=== PATIENT | male | born 1985 | race Caucasian/White ===

== ENCOUNTER 2019-10-20 20:05 | Emergency (ER) | payer MEDICAID ==
[2019-10-20] MEDS ORDERED: LORazepam 1 MG Tab ONE (20:20)
[2019-10-20] MEDS: Sodium Chloride 0.9% 1,000 ML IV ONE (20:30)
[2019-10-20 21:01] VITALS: BP 162/108; PULSE 108
--- NOTE | 2019-10-20 22:26 | EDM.PDOC ---
ED HPI GENERAL MEDICAL PROBLEM - General Chief Complaint: General Stated Complaint: seizure Time Seen by Provider: 10/20/19 20:10 Source of Information: Reports: Patient History Limitations: Reports: No Limitations - History of Present Illness INITIAL COMMENTS - FREE TEXT/NARRATIVE: This is a 34yo M brought in by EMS for a new onset seizure. He had recently stopped drinking alcohol completely for about 2 days. He did drink a lot prior in the range of a 6 pack and 500mL of liquor. He had not been eating today and has not slept much the past few days. He denies prior history of seizure like activity. Onset: Sudden Duration: Minutes: Location: Reports: Generalized Associated Symptoms: Reports: No Other Symptoms - Related Data Allergies Allergy/AdvReac Type Severity Reaction Status Date / Time No Known Allergies Allergy Verified 03/08/16 18:37 Home Meds: Home Meds chlordiazePOXIDE HCl [Chlordiazepoxide HCl] 5 mg PO DAILY 03/08/16 [History] Past Medical History HEENT History: Reports: Allergic Rhinitis Psychiatric History: Reports: Addiction, Anxiety, Depression, Panic Attack, Suicidal Ideation Social & Family History - Tobacco Use Smoking Status *Q: Current Every Day Smoker Years of Tobacco use: 20 Packs/Tins Daily: 1 Used Tobacco, but Quit: Yes Month/Year Tobacco Last Used: 09/2019 Second Hand Smoke Exposure: Yes - Caffeine Use Caffeine Use: Reports: Soda Caffeine Use Comment: 6 cans per day - Alcohol Use Days Per Week of Alcohol Use: 7 Number of Drinks Per Day: 15 Total Drinks Per Week: 105 Date of Last Drink: 10/18/19 - Recreational Drug Use Recreational Drug Use: No ED ROS GENERAL - Review of Systems Review Of Systems: Comprehensive ROS is negative, except as noted in HPI. ED EXAM, GENERAL - Physical Exam Exam: See Below Exam Limited By: No Limitations General Appearance: Alert, WD/WN, No Apparent Distress Eye Exam: Bilateral Eye: EOMI, PERRL Ears: Normal External Exam Nose: Normal Inspection Throat/Mouth: Normal Inspection Head: Atraumatic, Normocephalic Neck: Normal Inspection Respiratory/Chest: No Respiratory Distress, Lungs Clear, Normal Breath Sounds Cardiovascular: Normal Peripheral Pulses, Regular Rate, Rhythm Peripheral Pulses: 2+: Dorsalis Pedis (L), Dorsalis Pedis (R) GI/Abdominal: Normal Bowel Sounds Back Exam: Normal Inspection Extremities: Normal Inspection Neurological: Alert, Oriented, CN II-XII Intact, Normal Cognition, Normal Gait, Normal Reflexes, No Motor/Sensory Deficits Psychiatric: Normal Affect, Normal Mood Skin Exam: Warm, Dry, Intact Course - Vital Signs Last Recorded V/S: Last Vital Signs Temp 36.9 C 10/20/19 21:00 Pulse 108 H 10/20/19 21:00 Resp 18 10/20/19 21:00 BP 162/108 H 10/20/19 21:00 Pulse Ox 99 10/20/19 21:00 - Orders/Labs/Meds Orders: Active Orders 24 hr Category Date Time Status Head wo Cont [CT] Stat Exams 10/20/19 20:34 Taken UA RFX DIEGO AND CULT IF INDIC [URIN] Stat Lab 10/20/19 20:34 Ordered Labs: Laboratory Tests 10/20/19 10/20/19 Range/Units 20:45 20:45 WBC 3.9 L D (4.0-11.0) K/uL RBC 4.96 (4.50-6.50) M/uL Hgb 15.1 (13.0-18.0) g/dL Hct 44.7 (40.0-54.0) % MCV 90 (76-96) fL MCH 30.4 (27.0-32.0) pg MCHC 33.8 (31.0-35.0) g/dL RDW 13.4 (11.0-16.0) % Plt Count 176 (150-400) K/uL MPV 9.9 (6.0-10.0) fL Neut % (Auto) 61.3 (45.0-70.0) % Lymph % (Auto) 27.1 (20.0-40.0) % Gila % (Auto) 8.0 (3.0-10.0) % Eos % (Auto) 2.8 (1.0-5.0) % Baso % (Auto) 0.8 H (0.0-0.5) % Neut # (Auto) 2.37 (2.00-7.50) K/uL Lymph # (Auto) 1.05 L (1.50-4.00) K/uL Gila # (Auto) 0.31 (0.20-0.80) K/uL Eos # (Auto) 0.11 (0.04-0.40) K/uL Baso # (Auto) 0.03 (0.02-0.10) K/uL Sodium 132 L (136-145) mmol/L Potassium 3.4 L D (3.5-5.1) mmol/L Chloride 96 L (98-107) mmol/L Carbon Dioxide 24.4 (21.0-32.0) mmol/L Anion Gap 15.0 (5.0-15.0) mmol/L BUN 14 (8-26) mg/dL Creatinine 1.29 D (0.70-1.30) mg/dL Est Cr Clr Drug Dosing TNP Estimated GFR (MDRD) > 60 (>60) MLS/MIN BUN/Creatinine Ratio 10.9 (6-25) Glucose 171 H (74-100) mg/dL Calcium 9.0 (8.5-10.1) mg/dL Total Bilirubin 0.7 D (0.0-1.0) mg/dL AST 148 H (15-37) U/L ALT 182 H (12-78) U/L Alkaline Phosphatase 79 (46-116) U/L Troponin I < 0.017 (0.000-0.060) ng/mL B-Natriuretic Peptide 41 (0-125) pg/mL Total Protein 7.8 (6.4-8.2) g/dL Albumin 4.4 (3.4-5.0) g/dL Globulin 3.4 (2.2-4.2) g/dL Albumin/Globulin Ratio 1.3 (0.8-2.0) TSH, Ultra Sensitive 4.369 H D (0.358-3.740) uIU/mL Ethyl Alcohol < 3.0 (<3.0) mg/dL Departure - Departure Time of Disposition: 22:20 Disposition: Home, Self-Care 01 Condition: Good Clinical Impression: Alcohol withdrawal seizure Qualifiers: Complication of substance-induced condition: uncomplicated Qualified Code(s): F10.230 - Alcohol dependence with withdrawal, uncomplicated - Discharge Information Instructions: Hypokalemia, Sodium Test Forms: ED Department Discharge Sepsis Event Note - Evaluation Sepsis Screening Result: No Definite Risk - Focused Exam Vital Signs: Vital Signs Temp Pulse Resp BP Pulse Ox 10/20/19 21:00 36.9 C 108 H 18 162/108 H 99 Date Exam was Performed: 10/20/19 Time Exam was Performed: 22:21 - Problem List & Annotations (1) Alcohol withdrawal seizure SNOMED Code(s): 851983656 Code(s): F10.239 - ALCOHOL DEPENDENCE WITH WITHDRAWAL, UNSPECIFIED; R56.9 - UNSPECIFIED CONVULSIONS Status: Suspected Qualifiers: Complication of substance-induced condition: uncomplicated Qualified Code(s ): F10.230 - Alcohol dependence with withdrawal, uncomplicated - Problem List Review Problem List Initiated/Reviewed/Updated: Yes - My Orders Last 24 Hours: My Active Orders 10/20/19 20:34 Head wo Cont [CT] Stat UA RFX DIEGO AND CULT IF INDIC [URIN] Stat - Assessment/Plan Last 24 Hours: My Active Orders 10/20/19 20:34 Head wo Cont [CT] Stat UA RFX DIEGO AND CULT IF INDIC [URIN] Stat Plan: Counseled on alcohol withdrawal and management. Patient to f/u in clinic as directed. Prescribed lorazepam as directed and scheduled for the next few days. F/u if any concerns or return of symptoms. Discussed close monitoring with conservative and supportive care. Discussed hydration, hypokalemia and hyponatremia.
--- NOTE | 2019-10-21 09:13 | CT ---
Date of Service: 10/20/19 Clinical Data: new onset seizure UNENHANCED BRAIN CT: Multislice axial acquisition was performed. No priors. No masses or mass effect. No intracranial hemorrhage. No evidence of acute or subacute infarct. No osseous abnormalities. IMPRESSION: No acute intracranial abnormalities. [id number] MTD
== END 2019-10-20 22:15 | disposition home or self-care (01) ==
LOC: LB.ED 20:05
DX: F10.230 Alcohol dependence with withdrawal, uncomplicated (principal); Y90.0 Blood alcohol level of less than 20 mg/100 ml; F17.210 Nicotine dependence, cigarettes, uncomplicated; F41.9 Anxiety disorder, unspecified; Z79.899 Other long term (current) drug therapy
CPT/HCPCS: 36415; 70450; 80053; 80320; 83880; 84443; 84484; 85025; 96360; 99285; A0425; A0429; A9270; J7030; G0480

== ENCOUNTER 2020-08-17 11:47 | Emergency (ER) | payer MEDICAID ==
[2020-08-17 12:05] VITALS: BP 162/107; PULSE 106
--- NOTE | 2020-08-17 12:17 | EDM.PDOC ---
ED HPI GENERAL MEDICAL PROBLEM - General Chief Complaint: Drug or Alcohol Abuse Stated Complaint: EVALUATION Time Seen by Provider: 08/17/20 11:55 Source of Information: Reports: Patient History Limitations: Reports: No Limitations - History of Present Illness INITIAL COMMENTS - FREE TEXT/NARRATIVE: patient was sober for 2 years, started drinking ETOH 2 weeks ago and would like to return to treatment. He is staying at [facility] and his father brings him to ED. He and his brother have arranged for inpatient treatment at [facility] in the [facility] and the patient presents for a COVID test prior to treatment admission. He last drank vodka this AM. He states he has been eating normally. PMH of seizures with withdrawls. Slight tremor noted, denies CALDERON, nausea, hallucinations, SI, HI. Associated Symptoms: Reports: No Other Symptoms - Related Data Allergies Allergy/AdvReac Type Severity Reaction Status Date / Time No Known Allergies Allergy Verified 03/08/16 18:37 Home Meds: Home Meds chlordiazePOXIDE HCl [Chlordiazepoxide HCl] 5 mg PO DAILY 03/08/16 [History] Past Medical History HEENT History: Reports: Allergic Rhinitis Psychiatric History: Reports: Addiction, Anxiety, Depression, Panic Attack, Suicidal Ideation Social & Family History - Caffeine Use Caffeine Use: Reports: Soda Caffeine Use Comment: 6 cans per day ED ROS GENERAL - Review of Systems Review Of Systems: See Below Constitutional: Reports: No Symptoms HEENT: Reports: No Symptoms Respiratory: Reports: No Symptoms, Cough (allergy related) Cardiovascular: Reports: No Symptoms Endocrine: Reports: No Symptoms GI/Abdominal: Reports: No Symptoms : Reports: No Symptoms Musculoskeletal: Reports: No Symptoms Skin: Reports: No Symptoms Neurological: Reports: No Symptoms Psychiatric: Reports: No Symptoms Immunologic: Reports: No Symptoms ED EXAM, GENERAL - Physical Exam Exam: See Below Exam Limited By: No Limitations General Appearance: Alert, No Apparent Distress Ears: Normal External Exam, Normal Canal, Normal TMs Nose: Normal Inspection Throat/Mouth: Normal Inspection, Normal Lips, Normal Teeth, Normal Oropharynx, Normal Voice, No Airway Compromise Head: Atraumatic Neck: Normal Inspection, Non-Tender, Full Range of Motion Respiratory/Chest: No Respiratory Distress, Lungs Clear, Normal Breath Sounds, No Accessory Muscle Use Cardiovascular: No Edema, No JVD, No Murmur, Tachycardia Peripheral Pulses: 3+: Radial (L), Radial (R), Dorsalis Pedis (L), Dorsalis Pedis (R) GI/Abdominal: Normal Bowel Sounds, Soft, Non-Tender Back Exam: Normal Inspection, Full Range of Motion Extremities: Normal Range of Motion, Non-Tender, No Pedal Edema, Normal Capillary Refill Neurological: Alert, Oriented, Normal Cognition, Normal Gait, Normal Reflexes, No Motor/Sensory Deficits Psychiatric: Normal Affect, Anxious Skin Exam: Warm, Dry, Intact Lymphatic: No Adenopathy Course - Vital Signs Last Recorded V/S: Last Vital Signs Temp 206.6 F H 08/17/20 12:00 Pulse 106 H 08/17/20 12:00 Resp 16 08/17/20 12:00 BP 162/107 H 08/17/20 12:00 Pulse Ox 99 08/17/20 12:00 - Orders/Labs/Meds Orders: Active Orders 24 hr Category Date Time Status CORONAVIRUS COVID-19 RAPID [MOLEC] Stat Lab 08/17/20 13:11 Ordered ETHANOL BLOOD MEDICAL [CHEM] Stat Lab 08/17/20 13:11 Ordered Meds: Medications Discontinued Medications Generic Name Dose Route Start Last Admin Trade Name Freq PRN Reason Stop Dose Admin Lorazepam Confirm 08/17/20 12:45 08/17/20 12:45 Ativan Administered 08/17/20 12:46 1 mg Dose Administration 1 mg .ROUTE .STK-MED ONE Departure - Departure Time of Disposition: 13:30 Disposition: DC/Tfer to Inpt Rehab Fac 62 Clinical Impression: Alcohol abuse, Chronic alcohol abuse Alcohol dependence syndrome Qualifiers: Substance use status: uncomplicated Qualified Code(s): F10.20 - Alcohol dependence, uncomplicated - Discharge Information *PRESCRIPTION DRUG MONITORING PROGRAM REVIEWED*: Not Applicable *COPY OF PRESCRIPTION DRUG MONITORING REPORT IN PATIENT KAMILAH: Not Applicable Instructions: Chemical Dependency Referrals: PCP,None [Primary Care Provider] - Forms: ED Department Discharge Additional Instructions: Patient discharged from ED, going to [facility] with Father for detox and inpatient treatment Sepsis Event Note (ED) - Evaluation Sepsis Screening Result: No Definite Risk - Focused Exam Vital Signs: Vital Signs Temp Pulse Resp BP Pulse Ox 08/17/20 12:00 206.6 F H 106 H 16 162/107 H 99 - My Orders Last 24 Hours: My Active Orders 08/17/20 13:11 CORONAVIRUS COVID-19 RAPID [MOLEC] Stat ETHANOL BLOOD MEDICAL [CHEM] Stat - Assessment/Plan Last 24 Hours: My Active Orders 08/17/20 13:11 CORONAVIRUS COVID-19 RAPID [MOLEC] Stat ETHANOL BLOOD MEDICAL [CHEM] Stat Plan: Trace JORGE LUIS called to assist with placement. [facility] social services director enroute to hospital for rule 25. Called [facility] in [place], spoke with Jaki the [facility] director, they have an inpatient bed, but the patient would need to detox prior to inpatient treatment. BAL ordered. 1325 Patient and father left hospital to collect patients belongings. He is cleared and accepted at [facility] in [place] for detox and inpatient treatment. His father will drive the patient. COVID negative. BAL 267, result called to Fina MORALES at [facility]
[2020-08-17] MEDS: LORazepam 1 MG Tab ONE (12:45)
== END 2020-08-17 13:25 ==
LOC: LB.ED 11:47
DX: F10.20 Alcohol dependence, uncomplicated (principal); Y90.8 Blood alcohol level of 240 mg/100 ml or more; Z20.828 Contact with and (suspected) exposure to other viral communicable diseases
CPT/HCPCS: 36415; 80307; 87635; 99284; A9270; U0002

== ENCOUNTER 2021-05-29 14:22 | Emergency (ER) | payer MEDICAID ==
[2021-05-29] MEDS ORDERED: Sodium Chloride 0.9% 1,000 ML IV ONE (14:48)
[2021-05-29] MEDS ORDERED: Thiamine 100 MG in Sodium Chloride 0.9% 100 ML IV SCH (15:00)
[2021-05-29] MEDS ORDERED: LORazepam 2 MG/ML SDV ONE (15:22)
[2021-05-29] MEDS ORDERED: LORazepam 2 MG/ML SDV IM ONE (15:28)
[2021-05-29] MEDS ORDERED: Ondansetron 4 MG/2 ML SDV ONE (15:42)
[2021-05-29] MEDS: Ondansetron 4 MG/2 ML SDV IVPUSH PRN (15:46)
[2021-05-29] MEDS ORDERED: MVI, Adult with Vitamin K 10 ML, Thiamine 100 MG, Folic Acid 1 MG, Magnesium Sulfate 3 ... IV SCH ×5 (16:00)
[2021-05-29] MEDS ORDERED: D5W ONE (16:14)
[2021-05-29] MEDS ORDERED: Thiamine 200 MG/2 ML MDV ONE (16:14)
[2021-05-29] MEDS ORDERED: MAGNESIUM SULFATE ONE (16:14)
[2021-05-29] MEDS: LORazepam 2 MG/ML SDV IVPUSH PRN ×3 (18:24→23:00)
[2021-05-29] MEDS ORDERED: Prochlorperazine 10 MG/2 ML SDV IVPUSH PRN (18:25)
[2021-05-30] MEDS: LORazepam 2 MG/ML SDV IVPUSH PRN ×2 (05:02→07:15)
[2021-05-30] MEDS: Ondansetron 4 MG/2 ML SDV IVPUSH PRN (07:34)
--- NOTE | 2021-05-30 14:33 | ER ---
ADMISSION DIAGNOSIS: Alcoholism with withdrawal symptoms. HISTORY: This 35-year-old man has a fairly long-standing history of alcohol abuse and alcoholism with symptoms and sequelae of alcohol withdrawal. Apparently, lately, he went on a drinking spree, where he drank exceedingly excessive amount of alcohol over the prior 24 hours. He has had a history of complications of his alcoholism including upper GI bleeding, and with alcohol withdrawal in the past, he has had suicidal ideation and has experienced withdrawal seizures. He was brought to the emergency department requesting help with his alcohol withdrawal symptoms by the law enforcement officials. He was dropped off at the emergency room, and after a short period of waiting, left the emergency room before being evaluated. He evidently wandered around a bit and returned for evaluation. He states that he had been drinking up alcohol as much as 1 L per day for the prior 2 weeks. He was complaining of feeling sweaty and shaky. He still did have alcohol odor on his breath. He was complaining of nausea and was afraid that he was experiencing withdrawal symptoms even though it had only been a few hours since he stopped drinking. As mentioned above, he has experienced withdrawal symptoms before and has been seen and hospitalized for this. He was treated in [facility] in [place] in the past and also was in a treatment center in [place], [place], several years ago. It appears that his alcohol related problems date back approximately 10 years or so. Many of them are linked to various interpersonal problems with girlfriends, etc. Evidently, he recently lost his job, which was a trigger for his most recent binge. He has been on antidepressants in the past, but demonstrated noncompliance and discontinued these medications on his own. PAST MEDICAL HISTORY: 1. Alcoholism, as mentioned above. 2. History of hematemesis. 3. History of alcohol withdrawal seizures. 4. History of suicidal ideation. MEDICATIONS: None at this time. ALLERGIES: NONE TO MEDICATIONS. REVIEW OF SYSTEMS: Pertinent positives and negatives as listed in HPI. PHYSICAL EXAMINATION: GENERAL: He is diaphoretic with the odor of alcohol in his breath. His speech is only slightly slurred. He does seem to answer questions appropriately. He looks very disheveled and he is diaphoretic. VITAL SIGNS: He is afebrile, but heart rate is 106, blood pressure 162/107, respiratory rate 16, O2 sats 99% on room air. HEENT: There is no scleral icterus. He does have some conjunctival injection bilaterally. Oropharynx is normal. NECK: Supple. No JVD. No adenopathy. CHEST: Clear to auscultation with good air exchange. No wheezes, rhonchi, or rales. CARDIAC: Regular rate without murmur. ABDOMEN: Soft. No hepatosplenomegaly. No ascites. No tenderness. EXTREMITIES: Normal pulses. No edema. He does have a mild superficial abrasion over his left knee from a recent fall. NEUROLOGIC: He is oriented x3. He exhibits a slight fine shake or tremor. There is no asterixis demonstrable. His reflexes are normal and symmetrical. Muscle strength bulk and tone are normal and symmetrical. Sensory is intact to crude touch. NEUROLOGIC: Station and gait were not tested. LABORATORY DATA: He does not have a leukocytosis and his hemoglobin is 15.7. PT and INR were normal. CMP shows that he has a mild hyponatremia with a sodium of 132. His potassium is 4.0, chloride 93, anion gap is 21.2. His BUN is 18, creatinine 1.04. His glucose is 129 (nonfasting). He does have transaminase elevations with an AST of 240, an ALT of 198, and alkaline phosphatase of 130. His ammonia level is less than 10. He does not have an elevated bilirubin. His albumin is 4.4. His blood alcohol level was 85 mg per dL. Urine toxicology screen was only positive for benzodiazepines. His SARS-CoV-2 RNA (CHELI was negative). FURTHER EMERGENCY ROOM COURSE: We began treating him with banana bag and IV hydration including thiamine and vitamins. He was treated with lorazepam for his anxiety and withdrawal symptoms and he also received Zofran 4 mg IV q.4 hours for nausea. Further emergency room course; his CIWA scoring went from a high of 26 down to 8 and even lower over the course of the next several hours. He was back to baseline and we continued to support him in the emergency department while seeking out the possibilities for the detox centers and treatment. He was able to the eat and sobered up considerably, and we were able to secure a detox facility placement for him this morning in [place] where he went to [facility]. This was voluntary and in fact a request made by him. LJ /[id number] MTDD
== END 2021-05-30 08:05 | disposition other institution (70) ==
LOC: LB.ED 14:22
DX: F10.230 Alcohol dependence with withdrawal, uncomplicated (principal); Z20.822 Contact with and (suspected) exposure to COVID-19; Y90.4 Blood alcohol level of 80-99 mg/100 ml
CPT/HCPCS: 36415; 80053; 80307; 82140; 85025; 85610; 87635; 96365; 96366; 96372; 96375; 96376; 99284; A0425; A0429; J0780; J2060; J2405; J3411; J3475; J7030; J3490; U0002

== ENCOUNTER 2022-04-24 05:42 | Emergency (ER) | payer MEDICAID ==
[2022-04-24] MEDS: Sodium Chloride 0.9% 1,000 ML IV SCH (06:15)
[2022-04-24 06:39] LABS: ESTIMATED GFR 114 mL/min (>60)
[2022-04-24] MEDS: LORazepam 2 MG/ML SDV IVPUSH PRN (07:53)
[2022-04-24] MEDS: MVI, Adult with Vitamin K 10 ML, Thiamine 100 MG, Folic Acid 1 MG, Magnesium Sulfate 3 ... IV SCH ×5 (07:57)
[2022-04-24] MEDS: LORazepam 2 MG/ML SDV IVPUSH ONE (10:00)
[2022-04-24] MEDS ORDERED: LORazepam 2 MG/ML SDV ONE (10:13)
[2022-04-24 10:14] VITALS: BP 150/98; PULSE 90
== END 2022-04-24 10:10 | disposition home or self-care (01) ==
LOC: LB.ED 05:42
DX: F10.239 Alcohol dependence with withdrawal, unspecified (principal); Z20.822 Contact with and (suspected) exposure to COVID-19
CPT/HCPCS: 36415; 80048; 80307; 82040; 82247; 84075; 84155; 84450; 84460; 85025; 96361; 96365; 96375; 96376; 99282; 99284-25; J2060; J3411; J3475; J3490; J7030; U0002

== ENCOUNTER 2022-05-17 03:41 | Emergency (ER) | payer MEDICAID ==
[2022-05-17] MEDS ORDERED: Sodium Chloride 0.9% 10 ML Syringe FLUSH PRN (03:55)
[2022-05-17] MEDS ORDERED: MVI, Adult with Vitamin K 10 ML, Thiamine 100 MG, Folic Acid 1 MG, Magnesium Sulfate 3 ... IV SCH ×10 (04:00→05:00)
[2022-05-17] MEDS ORDERED: LORazepam 2 MG/ML SDV IVPUSH ONE (04:00)
[2022-05-17] MEDS ORDERED: Sodium Chloride 0.9% 1,000 ML IV SCH (04:45)
[2022-05-17] MEDS: LORazepam 2 MG/ML SDV IVPUSH PRN ×3 (04:50→12:43)
[2022-05-17 05:13] LABS: ESTIMATED GFR 99 mL/min (>60)
[2022-05-17] MEDS ORDERED: Nicotine 21 MG/24 Hr Patch TRDERM SCH (08:00)
[2022-05-17] MEDS ORDERED: LORazepam 2 MG/ML SDV ONE (08:15)
[2022-05-17 09:12] VITALS: BP 138/99; PULSE 105
== END 2022-05-17 13:10 | disposition home or self-care (01) ==
LOC: LB.ED 03:41
DX: F10.930 Alcohol use, unspecified with withdrawal, uncomplicated (principal); F17.210 Nicotine dependence, cigarettes, uncomplicated; Z20.822 Contact with and (suspected) exposure to COVID-19; Y90.7 Blood alcohol level of 200-239 mg/100 ml
CPT/HCPCS: 36415; 80053; 80307; 81001; 83735; 85025; 85610; 85730; 87635; 93005; 96361; 96365; 96366; 96375; 96376; 99285; A9270; J2060; J3411; J3475; J3490; J7030; 93010; 99282; U0002

== ENCOUNTER 2022-08-14 14:10 | Emergency (ER) | payer MEDICAID ==
[2022-08-14] MEDS ORDERED: Sodium Chloride 0.9% 1,000 ML IV ONE (14:31)
[2022-08-14 15:18] LABS: ESTIMATED GFR 92 mL/min (>60)
[2022-08-14] MEDS ORDERED: LORazepam 2 MG/ML SDV ONE (16:08)
[2022-08-14 20:19] VITALS: BP 137/82; PULSE 97
== END 2022-08-14 16:05 | disposition left against medical advice (07) ==
LOC: LB.ED 14:10
DX: F10.10 Alcohol abuse, uncomplicated (principal); Z79.899 Other long term (current) drug therapy; Z20.822 Contact with and (suspected) exposure to COVID-19
CPT/HCPCS: 36415; 80053; 80307; 81001; 83735; 85025; 87635; 96360; 99283; 99284; J7030; U0002

== ENCOUNTER 2023-03-06 15:52 | Emergency (ER) | payer MEDICAID ==
[2023-03-06 16:21] LABS: BASOPHILS ABSOLUTE AUTO 0.06 K/uL (0.02-0.10); BASOPHILS PERCENT AUTO 0.7 % (0.0-0.5); EOSINOPHILS ABSOLUTE AUTO 0.02 K/uL (0.04-0.40); EOSINOPHILS PERCENT AUTO 0.2 % (1.0-5.0); HEMOGLOBIN 16.8 g/dL (13.0-18.0); LYMPHOCYTES ABSOLUTE AUTO 2.42 K/uL (1.50-4.00); LYMPHOCYTES PERCENT AUTO 29.1 % (20.0-40.0); MEAN CORPUSCULAR HEMOGLOBIN 29.8 pg (27.0-32.0); MEAN CORPUSCULAR VOLUME 85 fL (76-96); MEAN PLATELET VOLUME 9.9 fL (6.0-10.0); MONOCYTES ABSOLUTE AUTO 0.55 K/uL (0.20-0.80); MONOCYTES PERCENT AUTO 6.6 % (3.0-10.0); NEUTROPHILS ABSOLUTE AUTO 5.28 K/uL (2.00-7.50); NEUTROPHILS PERCENT AUTO 63.4 % (45.0-70.0); PLATELET COUNT,PLT 352 K/uL (150-400); RED BLOOD CELL COUNT 5.64 M/uL (4.50-6.50); RED CELL DISTRIBUTION WIDTH 13.3 % (11.0-16.0); WHITE BLOOD CELL COUNT,WBC 8.3 K/uL (4.0-11.0)
[2023-03-06 16:32] VITALS: PULSE 104
[2023-03-06 16:33] LABS: ANION GAP 18.5 mmol/L (5.0-15.0); BUN/CREATININE RATIO 8.2 (6-25); CALCIUM 8.7 mg/dL (8.5-10.1); CARBON DIOXIDE,CO2 27.1 mmol/L (21.0-32.0); CREATININE 1.1 mg/dL (0.70-1.30); EST CRCL DRUG DOSING (CG) 102.9 mL/min; POTASSIUM,K 3.6 mmol/L (3.5-5.1)
[2023-03-06] MEDS: LORazepam 2 MG/ML SDV IVPUSH ONE ×4 (16:45→20:24)
[2023-03-06] MEDS: LORazepam 2 MG/ML SDV ONE ×4 (17:06→21:22)
[2023-03-06] MEDS: Nicotine 21 MG/24 Hr Patch TRDERM SCH (17:27)
[2023-03-06] MEDS: Nicotine 21 MG/24 Hr Patch ONE (17:34)
[2023-03-06 18:58] VITALS: BP 140/89
[2023-03-06] MEDS ORDERED: [UNRECOGNIZED DRUG - OTHER] IV ONE ×5 (19:00)
[2023-03-06] MEDS ORDERED: THIAMINE IV ONE ×5 (19:00)
[2023-03-06] MEDS ORDERED: MAGNESIUM SULFATE IV ONE ×5 (19:00)
[2023-03-06] MEDS ORDERED: MVI IV ONE ×5 (19:00)
[2023-03-06] MEDS ORDERED: FOLIC ACID IV ONE ×5 (19:00)
[2023-03-06] MEDS: Sodium Chloride 0.9% 1,000 ML IV SCH (19:22)
[2023-03-06] MEDS: Folic Acid 50 MG/10 ML MDV SUBCUT ONE (19:39)
[2023-03-06] MEDS: Thiamine 200 MG/2 ML MDV IVPUSH ONE (19:41)
[2023-03-06 19:58] LABS: A/G RATIO 1.2 (0.8-2.0); ALBUMIN 4.3 g/dL (3.4-5.0); ANION GAP 17.1 mmol/L (5.0-15.0); BILIRUBIN TOTAL 0.5 mg/dL (0.0-1.0); BUN/CREATININE RATIO 9.1 (6-25); CALCIUM 8.6 mg/dL (8.5-10.1); CARBON DIOXIDE,CO2 26.7 mmol/L (21.0-32.0); CREATININE 0.99 mg/dL (0.70-1.30); EST CRCL DRUG DOSING (CG) 114.34 mL/min; POTASSIUM,K 3.8 mmol/L (3.5-5.1)
== END 2023-03-06 20:53 | disposition other institution (70) ==
LOC: LB.ED 15:52
DX: S05.12XA Contusion of eyeball and orbital tissues, left eye, initial encounter (principal); S09.90XA Unspecified injury of head, initial encounter; F10.20 Alcohol dependence, uncomplicated; F17.200 Nicotine dependence, unspecified, uncomplicated; Y04.0XXA Assault by unarmed brawl or fight, initial encounter; Y92.009 Unspecified place in unspecified non-institutional (private) residence as the place of occurrence of the external cause
CPT/HCPCS: 36415; 70450; 80048; 80053; 80307; 85025; 96365; 96372; 96375; 96376; 99284; 99285-25; A0425; A0429; A9270-GY; J2060; J3411; J3475; J3490; J7030; U0002

== ENCOUNTER 2023-06-11 21:54 | Emergency (ER) | payer MEDICAID ==
[2023-06-11] MEDS ORDERED: Cyanocobalamin (Vitamin B12) 1,000 MCG/ML SDV IM ONE (23:22)
[2023-06-11] MEDS: Sodium Chloride 0.9% 1,000 ML IV SCH (23:36)
[2023-06-11] MEDS ORDERED: Sodium Chloride 0.9% 10 ML Syringe FLUSH PRN (23:42)
[2023-06-11] MEDS ORDERED: Diazepam 10 MG Tab PO ONE (23:49)
[2023-06-11] MEDS ORDERED: Diazepam 5 MG Tab ONE (23:58)
[2023-06-11] MEDS ORDERED: Diazepam 5 MG Tab PO ONE (23:59)
[2023-06-12] MEDS: Sodium Chloride 0.9% 1,000 ML IV SCH ×2 (00:59→02:00)
[2023-06-12] MEDS ORDERED: Sodium Chloride 0.9% 1,000 ML IV SCH (04:45)
[2023-06-12 05:01] VITALS: BP 137/98; PULSE 103
== END 2023-06-12 05:45 | disposition home or self-care (01) ==
LOC: LB.ED 21:54
DX: F10.220 Alcohol dependence with intoxication, uncomplicated (principal); R45.1 Restlessness and agitation
CPT/HCPCS: 96360; 96361; 96372; 99283; 99283-25; A9270-GY; J3420; J7030